=== PATIENT | male | born 1975 | race Caucasian/White ===

== ENCOUNTER 2016-05-22 17:35 | Emergency (ER) | payer OTHER ==
[2016-05-22] MEDS ORDERED: DIPH/PERTUSS(ACELL)/TETANUS VAC/PF 0.5 ML SYR (>=10YO) IM ONE (17:45)
--- NOTE | 2016-05-22 17:46 | ER Document Report ---
ED Medical Screen (RME) - General Stated Complaint: LACERATION/LEFT 2ND AND 3RD DIGIT Mode of Arrival: Ambulatory Information source: Patient Notes: Pt presents to the ED with laceration to the 2 nd and 3rd digits to his left hand. I have greeted and performed a rapid initial assessment of this patient. A comprehensive ED assessment and evaluation of the patient, analysis of test results and completion of the medical decision making process will be conducted by additional ED providers. TRAVEL OUTSIDE OF THE [place] IN LAST 30 DAYS: No - Related Data Allergies/Adverse Reactions: BEE VENOM Allergy (Severe, Uncoded 05/15/15 09:12) Past Medical History Pulmonary Medical History: Reports: Hx Asthma, Hx COPD Psychiatric Medical History: Denies: Hx Depression
[2016-05-22] MEDS ORDERED: CEPHALEXIN 500 MG CAPSULE PO ONE (18:54)
--- NOTE | 2016-05-22 19:00 | ER Document Report ---
ED General - General Chief Complaint: Laceration Stated Complaint: LACERATION/LEFT 2ND AND 3RD DIGIT Mode of Arrival: Ambulatory Information source: Patient TRAVEL OUTSIDE OF THE [place] IN LAST 30 DAYS: No - Related Data Allergies/Adverse Reactions: BEE VENOM Allergy (Severe, Uncoded 05/22/16 17:46) Past Medical History - General Information source: Patient - Social History Smoking Status: Never Smoker Chew tobacco use (# tins/day): No Frequency of alcohol use: Heavy Drug Abuse: None Family History: Reviewed & Not Pertinent Patient has suicidal ideation: No Patient has homicidal ideation: No Pulmonary Medical History: Reports: Hx Asthma, Hx COPD Renal/ Medical History: Denies: Hx Peritoneal Dialysis Psychiatric Medical History: Denies: Hx Depression Physical Exam - Vital signs Vitals: Temp Pulse Resp BP Pulse Ox 98.4 F 101 H 20 150/90 H 96 05/22/16 17:42 05/22/16 17:42 05/22/16 17:42 05/22/16 17:42 05/22/16 17:42 Course - Vital Signs Vital signs: Temp Pulse Resp BP Pulse Ox 98.4 F 101 H 20 150/90 H 96 05/22/16 17:42 05/22/16 17:42 05/22/16 17:42 05/22/16 17:42 05/22/16 17:42 Discharge - Discharge Clinical Impression: Finger injury Qualifiers: Encounter type: initial encounter Laterality: left Qualified Code(s): S69.92XA - Unspecified injury of left wrist, hand and finger(s), initial encounter Finger abrasion Qualifiers: Encounter type: initial encounter Qualified Code(s): S60.419A - Abrasion of unspecified finger, initial encounter Condition: Stable Disposition: HOME, SELF-CARE Instructions: Antibiotic Ointment Protection ([facility]), Laceration Care ([facility]), Prophylactic Antibiotic ([facility]), Tetanus Immunization Given ([facility]) Prescriptions: Cephalexin Monohydrate [Keflex 500 mg Capsule] 500 mg PO QID #40 capsule Hydrocodone/Acetaminophen [[place] 5-325 mg Tablet] 1 tab PO Q6 #14 tablet
[2016-05-22 19:23] VITALS: BP 138/91
== END 2016-05-22 19:23 | disposition home or self-care (01) ==
LOC: ER 17:35
DX: S69.92XA Unspecified injury of left wrist, hand and finger(s), initial encounter (principal); S60.419A Abrasion of unspecified finger, initial encounter; W45.8XXA Other foreign body or object entering through skin, initial encounter; Y92.009 Unspecified place in unspecified non-institutional (private) residence as the place of occurrence of the external cause; J45.909 Unspecified asthma, uncomplicated; J44.9 Chronic obstructive pulmonary disease, unspecified; Z91.030 Bee allergy status; Z23 Encounter for immunization
CPT/HCPCS: 99283

== ENCOUNTER 2018-03-27 10:22 | Emergency (ER) | payer OTHER ==
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
[2018-03-27 12:44] VITALS: BP 159/92
== END 2018-03-27 12:44 | disposition home or self-care (01) ==
LOC: ER 10:22
DX: S22.32XA Fracture of one rib, left side, initial encounter for closed fracture (principal); S00.11XA Contusion of right eyelid and periocular area, initial encounter; S00.12XA Contusion of left eyelid and periocular area, initial encounter; R07.81 Pleurodynia; Y04.2XXA Assault by strike against or bumped into by another person, initial encounter; Y92.029 Unspecified place in mobile home as the place of occurrence of the external cause; J44.9 Chronic obstructive pulmonary disease, unspecified
CPT/HCPCS: 70200; 99284